=== PATIENT | male | born 1960 | race Asian ===

== ENCOUNTER 2018-11-01 14:36 | Emergency (ER) | payer OTHER ==
[~2018-11-01] VITALS: Ht 188 cm; Wt 81.6 kg
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
[2018-11-01 15:05] VITALS: BP 136/78
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
[2018-11-01] MEDS ORDERED: oxyCODONE HCL/Acetaminophen 5/325mg PO ONE (15:15)
[2018-11-01] MEDS ORDERED: Tetanus/Diptheria/Pertussis IM ONE (15:15)
[2018-11-01] MEDS ORDERED: Neosporin Oint Ud Pkt TOP ONE (15:15)
--- NOTE | 2018-11-01 15:15 | NUR ---
ED Nurse Note: pt medicated as oredered and pt able to tolerate medication. will continue to monitor.
--- NOTE | 2018-11-01 15:16 | NUR ---
ED Nurse Note: pt went to the xray with tech
[2018-11-01] MEDS ORDERED: IBUPROFEN600 MG ORAL (17:15)
[2018-11-01] MEDS ORDERED: ROBAXIN500 MG PO (17:15)
[2018-11-01] MEDS ORDERED: TRAMADOL HCL50 MG ORAL (17:15)
[2018-11-01 17:27] VITALS: BP 125/75
--- NOTE | 2018-11-01 17:27 | NUR ---
ER DISCHARGE NOTE: Patient is cleared to be discharged per ERMD, pt is aox4, on room air, with stable vital signs. pt was given dc and prescription instructions, pt was able to verbalize understanding, pt id band removed without complications. pt is able to ambulate with steady gait. pt took all belongings.
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
--- NOTE | 2018-11-02 21:05 | Cardiology Report ---
APPROVED REPORT EKG Measurement Heart [id number] Normal sinus rhythm Possible Left atrial enlargement Borderline ECG
== END 2018-11-01 17:27 | disposition home or self-care (01) ==
LOC: EDBD 14:36 → EMR 15:22
DX: S16.1XXA Strain of muscle, fascia and tendon at neck level, initial encounter (principal); S20.212A Contusion of left front wall of thorax, initial encounter; S80.812A Abrasion, left lower leg, initial encounter; S40.012A Contusion of left shoulder, initial encounter; S80.811A Abrasion, right lower leg, initial encounter; V43.52XA Car driver injured in collision with other type car in traffic accident, initial encounter; Y92.410 Unspecified street and highway as the place of occurrence of the external cause
CPT/HCPCS: 71045; 72040; 90471; 90715; 93005; 99284